=== PATIENT | male | born 1975 | race Caucasian/White ===

== ENCOUNTER 2016-08-03 17:06 | Emergency (ER) | payer SELFPAY ==
[~2016-08-03] VITALS: Ht 165.1 cm; Wt 89.0 kg
[2016-08-03 17:12] VITALS: Ht 165.1 cm; Wt 89.0 kg
[2016-08-03] MEDS ORDERED: ONDANSETRON 4 MG INJ ONE (17:21)
[2016-08-03] MEDS ORDERED: SOD CHLORIDE 0.9% 1,000 ML IV STA (17:24)
[2016-08-03] MEDS ORDERED: ONDANSETRON 4 MG INJ IV STA (17:24)
[2016-08-03 17:44] LABS: ADD SCAN DIFF NO
--- NOTE | 2016-08-03 17:45 | RADRPT ---
PROCEDURE: CT Brain without. CLINICAL INDICATION: CVA. TECHNIQUE: A CT of the brain was performed on multidetector high-resolution CT scanner utilizing a xial sections from the skull base through the vertex without contrast. The scan was reviewed in sof t tissue brain and high frequency resolution bone algorithm windows. Images were reviewed on a high -resolution PACS workstation. One or more the following does reduction techniques were utilized: Aut omated exposure control, adjustment of the mA/ or kV according to patient's size, or use of iterativ e reconstruction technique. The exam CTDI = 41.74 mGy and the DLP = 720.23 mGy-cm. COMPARISON: None available. FINDINGS: The ventricles and sulci are age-appropriate. There is no intracranial hemorrhage, mass effect or mi dline shift. No abnormal intra-axial or extra-axial fluid collections are seen. The mcgee/white kel er differentiation is preserved. No acute skull abnormality is noted. The visualized paranasal sinus es are essentially clear. IMPRESSION: 1. No acute intracranial hemorrhage, transcortical infarction or mass effect. RPTAT: HFN .Kapil Lima MD, MD Date Time Electronically viewed and signed by .Kapil Lima MD, MD on 08/03/2016 17:45 .N/
[2016-08-03 17:47] LABS: ABNORMAL IP MESSAGE 1; BASOPHIL # 0.1 10^3/ul (0.0-0.1); BASOPHILS % 0.5 % (0.0-2.0); EOSINOPHILS # 0.2 10^3/ul (0.0-0.5); EOSINOPHILS % 1.2 % (0.0-7.0); HEMATOCRIT 49.8 % (42.0-52.0); HEMOGLOBIN 16.2 g/dl (14.0-18.0); LYMPHOCYTES # 6.4 10^3/ul (0.8-2.9); LYMPHOCYTES % 41.1 % (15.0-51.0); MEAN CORPUSCULAR HGB CONC 32.5 g/dl (32.0-37.0); MEAN PLATELET VOLUME 10.2 fl (7.4-10.4); MONOCYTE # 1.2 10^3/ul (0.3-0.9); MONOCYTES % 7.5 % (0.0-11.0); NEUTROPHIL # 7.7 10^3/ul (1.6-7.5); NEUTROPHILS % 49.2 % (39.0-77.0); PLATELET COUNT 351 10^3/UL (140-415); RED BLOOD COUNT 5.79 10^6/ul (4.70-6.10); RED CELL DISTRIBUTION WIDTH 14.1 % (11.5-14.5); WHITE BLOOD COUNT 15.6 10^3/ul (4.8-10.8)
[2016-08-03 18:01] LABS: CHLORIDE 103 mmol/L (97-110); POTASSIUM 3.3 mmol/L (3.5-5.1); SODIUM 143 mmol/L (135-144)
[2016-08-03 18:02] LABS: INR 0.91; PROTIME 12.3 Sec (12.2-14.2)
[2016-08-03 18:04] LABS: ANION GAP 20 (8-16); BLOOD UREA NITROGEN 19 mg/dl (7-20); CARBON DIOXIDE 23 mmol/L (21-31)
[2016-08-03 18:05] LABS: CALCIUM 9.9 mg/dl (8.4-10.2); GLUCOSE 109 mg/dl (70-220)
[2016-08-03 18:08] LABS: ACETAMINOPHEN < 10.0 ug/ml (10.0-30.0); ETHANOL < 10.0 mg/dl; SALICYLATE < 1.0 mg/dl (5.0-30.0)
--- NOTE | 2016-08-03 18:09 | RADRPT ---
PROCEDURE: XR Chest. CLINICAL INDICATION: Stroke TECHNIQUE: Chest AP portable. COMPARISON: No comparison available. FINDINGS: The mediastinal structures are unremarkable. The heart is normal in size and configuration. The pu lmonary vascularity is normal. The lung sauceda are unremarkable. No consolidation is identified. The pleural spaces are unremarkable. The axial skeleton is unremarkable. IMPRESSION: No active intrathoracic disease. RPTAT: HGDB .Son Randhawa MD, MD Date Time Electronically viewed and signed by .Son Randhawa MD, on 08/03/2016 18:09 .B/
[2016-08-03 18:20] LABS: TROPONIN-I < 0.012 ng/ml (0.00-0.12)
--- NOTE | 2016-08-03 18:23 | RADRPT ---
PROCEDURE: CT abdomen and pelvis without IV contrast. CLINICAL INDICATION: Abdomen pain/ vomiting. TECHNIQUE: CT scan of the abdomen and pelvis was performed on a [address] scanner. The patient is scanned without IV contrast. Coronal and sagittal reformatted images were obtained from the axia l source images. Images were reviewed on a high-resolution PACS workstation. Total radiation dose: Total CTDIvol: 21 mGy. Total DLP: 1234 mGy-cm. One or more of the following d ose reduction techniques were used: automated exposure control, adjustment of the mA and/or kV accor ding to patient size, or use of iterative reconstruction technique. COMPARISON: None available. FINDINGS: CT abdomen: The lung bases are clear. The heart is not enlarged without pericardial thickening or effusion. The liver is normal in size and density without focal hepatic mass or biliary dilatation. The splee n is normal in size. The stomach is partially collapsed but is grossly unremarkable. The pancreas as visualized is normal. There is status post cholecystectomy and there is no evidence of biliary dilatation. The adrenal glands are symmetrical and normal. There is 2 mm nonobstructing stone in the upper pole taniya of the left kidney. There is a small cyst in the right kidney. The kidneys are symmetricall y normal bilaterally. No renal obstructive uropathy or mass lesion is seen.. The aorta is normal in caliber. There is no retroperitoneal lymphadenopathy. The luz hepatis reg ion is clear. The bowel and mesentery, as visualized, are equally unremarkable. CT pelvis: The appendix is normal in the right lower quadrant. The small bowel loops situated within the pelvi s are unremarkable. The pelvic organs are normal. The pelvic sidewalls and inguinal regions are cl ear. No mass, lymphadenopathy is seen. No acute inflammation seen. The urinary bladder is normal. The surrounding osseous structures are unremarkable. No osteolytic or osteoblastic lesion is detect ed. IMPRESSION: 1. 0.2 cm nonobstructing stone in the upper pole of the left kidney. 2. State post cholecystectomy. 3. A small cyst in the right kidney. RPTAT: GG .Aly Fuentes MD, MD Date Time Electronically viewed and signed by .Aly Fuentes MD, on 08/03/2016 18:23 .Y/
[2016-08-03 18:33] VITALS: BP 156/63; PULSE 71; RESP 16
[2016-08-03] MEDS ORDERED: POTASSIUM CHLORIDE (SR) 20 MEQ TAB PO STA (18:53)
[2016-08-03] MEDS ORDERED: ONDA4TAB14 PO (18:54)
[2016-08-03] MEDS ORDERED: MECL12.574 PO (18:54)
--- NOTE | 2016-08-03 18:56 | ERD ---
ER Documentation Chief Complaint Date/Time DATE: 08/03/16 TIME: 18:55 Chief Complaint DIZZINESS,NAUSEA, PALPITATIONS HPI Patient is a 40-year-old male with no medical problems who presents with dizziness and vomiting. The symptoms started at 1230. It started after eating food from [employer]. His blood pressure was elevated and he was sweating. He never had this before. He felt like the room was spinning. He has had no treatment as of yet. He denies pain. He has no headache or chest pain. Upon review of old medical records this is the patient's first visit to the emergency department. He does not currently have a primary doctor. ROS All systems reviewed and are negative except as per history of present illness. Medications Home Meds Active Scripts Ondansetron (Ondansetron Odt) 4 Mg Tab.rapdis, 4 MG PO Q6H Y for NAUSEA AND/OR VOMITING, #30 TAB Prov:JANESSA COSTELLO MD 08/03/16 Meclizine Hcl* (Antivert*) 12.5 Mg Tab, 25 MG PO Q6H Y for DIZZINESS, #20 TAB Prov:JANESSA COSTELLO MD 08/03/16 PMhx/Soc Medical and Surgical Hx: pt denies Medical Hx History of Surgery: Yes (cholecystectomy) Anesthesia Reaction: No Hx Alcohol Use: No Hx Substance Use: No Hx Tobacco Use: No Smoking Status: Never smoker FmHx Family History: diabetes Physical Exam Vitals Vital Signs Date Time Temp Pulse Resp B/P Pulse Ox O2 Delivery O2 Flow Rate FiO2 08/03/16 18:33 71 16 156/63 97 08/03/16 17:25 Nasal Cannula 2 08/03/16 17:12 98.1 80 20 169/103 99 Physical Exam Const: Moderate distress with severe diaphoresis, actively vomiting Head: Atraumatic Eyes: Normal Conjunctiva ENT: Normal External Ears, Nose and Mouth. Neck: Full range of motion..~ No meningismus. Resp: Clear to auscultation bilaterally Cardio: Regular rate and rhythm, no murmurs Abd: Soft, non tender, non distended. Normal bowel sounds Skin: Diaphoretic Back: No midline or flank tenderness Ext: No cyanosis, or edema Neur: Awake and alert, no slurred speech, cranial nerves II through XII intact, no weakness of the upper or lower extremities bilaterally Result Diagram: 08/03/16 1730 08/03/16 1730 Results 24 hrs Laboratory Tests Test 08/03/16 17:19 08/03/16 17:24 08/03/16 17:30 Bedside Glucose 92mg/dL 111mg/dL White Blood Count 15.610^3/ul Red Blood Count 5.7910^6/ul Hemoglobin 16.2g/dl Hematocrit 49.8% Mean Corpuscular Volume 86.0fl Mean Corpuscular Hemoglobin 28.0pg Mean Corpuscular Hemoglobin Concent 32.5g/dl Red Cell Distribution Width 14.1% Platelet Count 71028^3/UL Mean Platelet Volume 10.2fl Neutrophils % 49.2% Lymphocytes % 41.1% Monocytes % 7.5% Eosinophils % 1.2% Basophils % 0.5% Nucleated Red Blood Cells % 0.0/100WBC Neutrophils # 7.710^3/ul Lymphocytes # 6.410^3/ul Monocytes # 1.210^3/ul Eosinophils # 0.210^3/ul Basophils # 0.110^3/ul Nucleated Red Blood Cells # 0.010^3/ul Prothrombin Time 12.3Sec Prothrombin Time Ratio 1.0 INR International Normalized Ratio 0.91 Activated Partial Thromboplast Time 29.0Sec Sodium Level 143mmol/L Potassium Level 3.3mmol/L Chloride Level 103mmol/L Carbon Dioxide Level 23mmol/L Anion Gap 20 Blood Urea Nitrogen 19mg/dl Creatinine 1.20mg/dl Glucose Level 109mg/dl Hemoglobin A1c 5.6% Calcium Level 9.9mg/dl Troponin I < 0.012ng/ml Salicylates Level < 1.0mg/dl Acetaminophen Level < 10.0ug/ml Ethyl Alcohol Level < 10.0mg/dl Current Medications Medications (Trade) Dose Ordered Sig/Brigid Route PRN Reason Start Time Stop Time Status Last Admin Dose Admin Sodium Chloride (NS) 1,000 ml @ 1,000 mls/hr Q1H STAT IV 08/03/16 17:24 08/03/16 18:23 DC 08/03/16 17:38 Ondansetron HCl (Zofran Inj) 4 mg ONCE STAT IV 08/03/16 17:24 08/03/16 17:25 DC 08/03/16 17:39 Potassium Chloride (Klor-Con 20) 40 meq ONCE STAT PO 08/03/16 18:53 08/03/16 18:54 DC Meclizine HCl (Antivert) 25 mg ONCE ONCE PO 08/03/16 19:00 08/03/16 19:01 Procedures/[facility] EKG read by me: Rate/Rhythm: Regular rate and rhythm at a rate of 84 Intervals: Normal Impression: No evidence of ischemia or arrhythmia CT brain negative per radiology. CT abdomen and pelvis negative per radiology. Chest x-ray negative per radiology. Patient is a 40-year-old male with no medical problems who presents with severe vomiting and diaphoresis. The patient felt dizzy with the room spinning. He had a full workup including CT scan of the brain and abdomen and pelvis, chest x -ray, laboratory studies, and EKG. Workup was basically normal. At this point I doubt intracranial hemorrhage or stroke. I doubt intra-abdominal infection or bowel obstruction. I doubt significant electrolyte abnormality. The patient had mild hypokalemia and was given potassium by mouth. The patient was given meclizine and Zofran as well. The patient will be discharged with prescription for meclizine and Zofran and will need to follow-up with the local clinics within 24-48 hours as currently he does not have a primary doctor. Upon reevaluation the patient has no diaphoresis and feels much better. He can return for any worsening symptoms. Departure Diagnosis: Primary Impression: Vomiting Vomiting type: unspecified Vomiting Intractability: non-intractable Nausea presence: with nausea Qualified Code: R11.2 - Non-intractable vomiting with nausea, unspecified vomiting type Additional Impressions: Dizziness Hypokalemia Condition: Fair Patient Instructions: Dizziness, Unk Cause, Vomiting (8Y-Adult) Referrals: Your doctor Additional Instructions: Llame al doctor MAJAZMIN y maura jh XI PARA DENTRO DE 1-2 BOO.Dgale a la secretaria que nosotros le instruimos hacer esta xi.Avise o llame si [place] condicin se empeora antes de la xi. Regresa aqui si peor o no mejor. JANESSA COSTELLO MD August 03, 2016 18:56
[2016-08-03] MEDS ORDERED: MECLIZINE 12.5 MG TAB PO ONE (19:00)
== END 2016-08-03 19:28 | disposition home or self-care (01) ==
LOC: E/R 17:06
DX: R11.2 Nausea with vomiting, unspecified (principal); E87.6 Hypokalemia
CPT/HCPCS: 36415; 70450; 71010; 74176; 80048; 80306; 82962; 83036; 84484; 85025; 85610; 85730; 93005; 96374; 99285; J2405; J7030